=== PATIENT | female | born 1975 | race Caucasian/White ===

== ENCOUNTER 2023-12-25 07:58 | Day surgery (SDC) | payer OTHER ==
[~2023-12-25] VITALS: Ht 157.5 cm; Wt 157.5 kg
[~2023-12-25 07:58] MED LIST: EXCEDRIN MIGRA1 EAC2 PO; IBLOOD GLUCOSE TEST STRIP 1 EA TEST VI PRN; LACTATED RINGER'S 1,000 ML IV SCH; LIDOCAINE HCL 1% 5 ML SDV INJ ONE; MIDAZOLAM HCL 5 MG/5 ML VIAL IV PRN; REMERON15 MG PO; ZYRTEC10 MG PO; fentaNYL citrate 100 MCG/2 ML VIAL IV PRN
[2023-12-25 08:28] VITALS: BP 121/72
[2023-12-25] MEDS ORDERED: MIRTAZAPINE30 MG PO (08:32)
[2023-12-25] MEDS ORDERED: MIDAZOLAM HCL 5 MG/5 ML VIAL ONE (08:38)
[2023-12-25] MEDS ORDERED: fentaNYL citrate 100 MCG/2 ML VIAL ONE (08:38)
[2023-12-25 10:05] VITALS: BP 104/76
--- NOTE | 2023-12-25 10:30 | NUR ---
12/25/23 1030 Bella Jaramillo 0994 PT ARRIVED IN PACU SLEEPY. ABD SOFT. 0950 DR AT BEDSIDE. ALL QUESTIONS ANSWERED.
--- NOTE | 2023-12-26 07:08 | OR ---
[facility] [address], [place] [address] Signed DATE OF OPERATION: 12/25/2023 SURGEON: Mary Anne Guzmán MD PREOPERATIVE DIAGNOSIS: Screening. POSTOPERATIVE DIAGNOSIS: Tortuous colon. PROCEDURE: Colonoscopy without biopsy. ESTIMATED BLOOD LOSS: None. INDICATIONS: Bell is a 48-year-old female, who was asked to see me for a screening colonoscopy. She has no lower GI complaints. There is no family history of colon cancer or polyps. This would be her first colonoscopy. She reminded me that I helped her with his colonoscopy. Consequently, she is familiar with this process. In the office, I gave her a pamphlet on colonoscopy. We reviewed the nature of the test. There is risk including, but not limited to gas bloating, crampy abdominal pain, bleeding, perforation requiring surgery, and missed diagnosis. We also reviewed the written instructions for her bowel prep line by line. She also understands the need for IV conscious sedation. She said her will be taking her home afterwards. She had expressed understanding and wished to proceed. DESCRIPTION OF PROCEDURE: Bell was taken into our endoscopy suite and placed in the left lateral decubitus position. She was given IV sedation with 125 mcg of fentanyl and 4 mg of Versed. A digital rectal exam was performed. This was unremarkable. She had no external hemorrhoids. She had good sphincter tone. There were no masses. The adult colonoscope was introduced and advanced under direct visualization of the camera. It took some abdominal compression to get through her tortuous colon and into the cecum itself. Her prep was overall good. She had a few areas of liquid particulate stool matter, most of that was suctioned out. We could easily see the appendiceal orifice and the ileocecal valve. The scope was then slowly withdrawn. We saw no pathology throughout the entire colon or rectum. Upon retroflexion of the scope, there was no additional pathology noted above the anal canal. After this, the gas was suctioned out and the colonoscope Electronically Signed By: MARY ANNE GUZMÁN MD 12/26/23 0708 PATIENT NAME: BELL MONTEMAYOR OPERATIVE REPORT DATE OF : 77 REPORT #: [id number] PHYSICIAN: MARY ANNE GUZMÁN MD PCP: BRANDON ANDREWS DO REPORT IS CONFIDENTIAL AND NOT TO BE RELEASED WITHOUT AUTHORIZATION [facility] [address] [place] [id number] Signed removed. Bell tolerated the procedure quite well. RECOMMENDATIONS: Bell can return in 10 years for repeat screening colonoscopy. Mary Anne Guzmán MD ALB/MODL /[id number] cc: MD Brandon Duong DO Copies: MARY ANNE GUZMÁN MD, ARIAN DO ~ Electronically Signed By: MARY ANNE GUZMÁN MD 12/26/23 0708 PATIENT NAME: BELL MONTEMAYOR OPERATIVE REPORT DATE OF : 77 REPORT #: [id number] PHYSICIAN: MARY ANNE GUZMÁN MD PCP: BRANDON ANDREWS DO REPORT IS CONFIDENTIAL AND NOT TO BE RELEASED WITHOUT AUTHORIZATION
== END 2023-12-25 10:13 | disposition home or self-care (01) ==
LOC: DS 07:58
PROVIDERS: ATTEND Colon & Rectal Surgery
PROC: 0DJD8ZZ Inspection of Lower Intestinal Tract, Via Natural or Artificial Opening Endoscopic (ICD-10-PCS; principal; 2023-12-25 09:00)
DX: Z12.11 Encounter for screening for malignant neoplasm of colon (principal); K63.89 Other specified diseases of intestine; E55.9 Vitamin D deficiency, unspecified; G44.229 Chronic tension-type headache, not intractable; Z79.899 Other long term (current) drug therapy; Z88.2 Allergy status to sulfonamides; Z88.8 Allergy status to other drugs, medicaments and biological substances
CPT/HCPCS: 36415; 84703; 99153; G0500; J2250; J3010; J7121